=== PATIENT | male | born 1970 | race Caucasian/White ===

== ENCOUNTER → 2017-09-16 | Outpatient (CLI) | payer MEDICARE, MEDICAID ==
[~2017-09-16] VITALS: Ht 185.4 cm; Wt 88.5 kg
[2017-09-16 12:47] LABS: HEMOGLOBIN 12.8 gm/dL (14.0-18.0); MCH 32.5 pg (26.0-34.0); MCHC 32.9 g/dL (28.0-37.0); MCV 98.6 fL (80.0-100.0); RBC 3.95 mil/uL (4.50-6.00); RDW-CV 14.2 % (10.5-14.5)
[2017-09-16 12:58] LABS: CALCIUM 9.1 mg/dL (8.5-10.1); CREATININE 4.1 mg/dL (0.6-1.3); POTASSIUM 5.1 mmol/L (3.5-5.1)
[2017-09-16 13:00] LABS: APTT 30.7 Seconds (25.0-31.3); PROTIME 9.7 Seconds (9.20-11.50)
[2017-09-16 13:02] LABS: ALBUMIN 3.6 g/dL (3.4-5.0); TOTAL BILIRUBIN 0.5 mg/dL (<0.1-1.0); TOTAL PROTEIN 7.3 g/dL (6.4-8.2)
[2017-09-16 13:04] VITALS: BP 166/90
[2017-09-16 15:01] VITALS: BP 155/84
--- NOTE | 2017-10-02 14:35 | OP ---
[facility] [address] [place] [address] OPERATIVE REPORT Name: STEPHAN MCFADDEN Room: [facility]#: [id number] Admission: 09/16/17 Attend Phys: Madonna Alvarez Discharge: Date of : 72 Report #: [id number] THIS REPORT FOR: //name// CC: [facility] [place] Galdino Castro DATE OF SERVICE: 09/16/2017 PREOPERATIVE DIAGNOSIS: End-stage renal disease requiring hemodialysis. POSTOPERATIVE DIAGNOSIS: End-stage renal disease requiring hemodialysis. SURGEON: Galdino Ortiz DO. DISH CARRIER: None. PROCEDURE: 1. Ultrasound-guided access right internal jugular vein. 2. Tunneled dialysis catheter placement. ANESTHESIA: Moderate sedation. ESTIMATED BLOOD LOSS: Minimal. SPECIMEN: None. COMPLICATIONS: None. CONDITION: Stable. DISPOSITION: Home. INDICATIONS FOR THE PROCEDURE AND CONSENT: The patient is a 47-year-old male who presented with swelling and pain of his left upper extremity. He is status post brachiocephalic AV fistula. This appears to have had infiltrated. 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 A recommendation for tunneled dialysis catheter placement was made. Risks and benefits were discussed of infection, bleeding, need for additional procedures including fistulogram revision or new access at a later date. The patient wished to proceed, was consented and scheduled. PROCEDURE IN DETAIL: After timeout was performed, the patient was placed in supine position with sterile prep and drape of the anterior neck and chest wall. Ultrasound was utilized to identify the right internal jugular vein and Seldinger technique used to place a Seldinger needle and introducer wire into [address] [address] OPERATIVE REPORT Name: STEPHAN MCFADDEN Room: [facility]#: [id number] Admission: 09/16/17 Attend Phys: Madonna Alvarez Discharge: Date of : 72 Report #: [id number] the vena cava under fluoroscopic guidance. The needle was removed. A small transverse incision was made after injecting additional local anesthetic. The introducer sheath was then advanced over wire and a second wire advanced through the sheath and the introducer sheath removed. The tract was then serially dilated with medium and large dilators, and then the dual lumen catheter advanced over both wires into the atriocaval junction. The stylets and wires were removed and the catheter tunneled out on to the chest wall without difficulty after additional anesthetic was injected. Both lumens were cut to length and the end caps applied. Both catheters were aspirated and flushed without difficulty and locked with heparin saline 1000 units per milliliter. The neck access site was then closed with 4-0 Monocryl suture and Dermabond dressing applied. A sterile dressing was applied at the exit site of the catheter. The patient tolerated the procedure well. Lap, needle and instrument counts were correct. Portable chest x-ray is pending. With regards to his fistula, next steps would be 2 weeks of recommended rest with AV fistula prior to any additional use. 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 This can be used as a marker of a place to avoid and would be at least 1 inch below his tattoo for access. This has been explained to the patient at length. If there are additional access issues, will need a fistulogram and possible revision. Thanks for allowing me to participate in this patient's care. Please do not hesitate to call should you have further questions or concerns. <ELECTRONICALLY SIGNED> By: Galdino Ortiz DO 10/02/17 [id number] Ortiz DO /nt
== END | disposition home or self-care (01) ==
LOC: M.INT 11:41
PROVIDERS: Surgery
DX: I12.0 Hypertensive chronic kidney disease with stage 5 chronic kidney disease or end stage renal disease (principal); E11.22 Type 2 diabetes mellitus with diabetic chronic kidney disease; N18.6 End stage renal disease; Z99.2 Dependence on renal dialysis; E78.00 Pure hypercholesterolemia, unspecified; I21.3 ST elevation (STEMI) myocardial infarction of unspecified site; Z95.1 Presence of aortocoronary bypass graft